=== PATIENT | female | born 1995 | race Two or more races ===

== ENCOUNTER 2024-08-11 18:52 | Emergency (ER) | payer OTHER, MEDICAID ==
[~2024-08-11] VITALS: Ht 154.9 cm; Wt 80.0 kg
[2024-08-11 18:57] VITALS: BP 132/86; PULSE 90; RESP 18; O2SAT 98
[2024-08-11] MEDS ORDERED: diphenhdrAMINE HCL 50 MG/1 ML VL IM ONE (19:15)
[2024-08-11] MEDS ORDERED: DexAMETHasone SOD PHOS 10MG/1ML VIAL INJ IM ONE (19:15)
[2024-08-11] MEDS ORDERED: FAMOTIDINE 20 MG TAB PO ONE (19:15)
[2024-08-11] MEDS ORDERED: METH4PAK PO (19:53)
[2024-08-11] MEDS ORDERED: FAMO20TA10 PO (19:53)
[2024-08-11] MEDS ORDERED: MONT10TA23 PO (19:53)
--- NOTE | 2024-08-11 19:53 | ED.PDOC ---
HPI Allergic reaction HPI Comments PT HAS C/O POSSIBLE ALLERGIC REACTION TO UNK HAS HIVES AND FEELS TIGHTNESS IN THROAT PT STATES SHES TAKEN HER INHALER MULTIPLE TIMES LITTLE RELIEF. DENIES CHEST PAIN, DIFFICULTY BREATHING, THROAT SWELLING SHORTNESS OF BREATH, VOMITING. Chief Complaint: Allergic Reaction Time Seen by MD: 19:05 Primary Care Provider: GARY Barragan Notes: Nurses Notes, Medications, Allergies Allergies: Coded Allergies: NO KNOWN ALLERGIES (Unverified , 02/27/13) Home Meds Active Scripts Famotidine (PEPCID TABLET) 20 Mg Tb, 1 TAB PO BID for 6 Days, #12 TAB 5 Refills Prov:DEANN ESTRADAK DISABILITY COUNSELOR 08/11/24 Methylprednisolone (Medrol Dosepak) 4 Mg Helder, 4 MG PO UD for 6 Days, #21 TAB UAD Prov:RUFINO ESTRADA [facility] 08/11/24 Discontinued Scripts Montelukast Sodium (Singulair) 10 Mg Tab, 10 MG PO HS for 10 Days, #10 TAB Prov:SEANRUFINO Tran [facility] 08/11/24 Information Source: Patient Mode of Arrival: Ambulatory Past Medical History PAST MEDICAL HISTORY: Denies Surgical History: Denies all surgeries EMPLOYMENT SERVICES DIRECTOR History: No Pertinent EMPLOYMENT SERVICES DIRECTOR History Family History Family History: No family hx of DM Social History Smoker: Non-Smoker Alcohol: Denies ETOH Use Drugs: Denies Drug Use Lives In: Home Constitutional: denies: chills, diaphoresis, fatigue, fever, malaise, sweats, weakness, others EENTM: denies: blurred vision, double vision, ear bleeding, ear discharge, ear drainage, ear pain, ear ringing, eye pain, eye redness, hearing loss, mouth pain, mouth swelling, nasal discharge, nose bleeding, nose congestion, nose pain, photophobia, tearing, throat pain, throat swelling, voice changes, others Respiratory: denies: cough, hemoptysis, orthopnea, SOB at rest, shortness of breath, SOB with excertion, stridor, wheezing, others Cardiovascular: denies: chest pain, dizzy spells, diaphoresis, Dyspnea on exertion, edema, irregular heart beat, left arm pain, lightheadedness, palpitations, PND, syncope, others Gastrointestinal: denies: abdomen distended, abdominal pain, blood streaked bowels, constipated, diarrhea, dysphagia, difficulty swallowing, hematemesis, melena, nausea, poor appetite, poor fluid intake, rectal bleeding, rectal pain, vomiting, others Genitourinary: denies: abnormal vagina bleeding, burning, dyspareunia, dysuria, flank pain, frequency, hematuria, incontinence, pain, , vagina discharge, urgency, others Neurological: denies: dizziness, fainting, headache, left sided numbness, left sided weakness, numbness, paresthesia, pre-existing deficit, right sided numbness, right sided weakness, seizure, speech problems, tingling, tremors, weakness, others Musculoskeletal: denies: back pain, gout, joint pain, joint swelling, muscle pain, muscle stiffness, neck pain, others Integumetry: reports: rash (HIVES AND ITCHINESS TO TRUNK) Allergic/Immunocompromised: denies: Difficulty Healing, Frequent Infections, Hives, Itching, others Hematologic/Lymphatic: denies: anemia, blood clots, easy bleeding, easy bruising, swollen glands, others Endocrine: denies: excessive hunger, excessive sweating, excessive thirst, excessive urination, flushing, intolerance to cold, intolerance to heat, unexplained weight gain, unexplained weight loss, others Psychiatric: denies: anxiety, bipolar disorder, depression, hopeless, panic disorder, schizophrenia, sleepless, suicidal, others Physical Exam General Appearance: No Apparent Distress, Normal HEENT: Normal ENT Inspection, Pharynx Normal, TMs Normal Neck: Full Range of Motion, Non-Tender Respiratory: Lungs Clear, No Accessory Muscle Use, No Respiratory Distress, Normal Breath Sounds Cardiovascular: No Edema, No Murmur, Normal Peripheral Pulses, Regular Rate/Rhythm Breast Exam: Deferred Gastrointestinal: Non Tender, Soft Genitalia: Deferred Pelvic: Deferred Rectal: Deferred Extremities: Normal capillary refill, Normal inspection, Normal range of motion, Non-tender, No pedal edema Musculoskeletal : Apperance: Normal Neurologic: Alert, sludge mill operator II-XII nml as Tested, No Motor Deficits, Normal Affect, Normal Mood, No Sensory Deficits Cerebellar Function: Normal Reflexes: Normal Skin: Dry, Normal Color, Rash (URTICARIAL RASH TO TRUNK WITHOUT OPEN LESIONS, EXCORIATIONS, OR DRAINAGE.), Warm Lymphatic: No Adenopathy Was a procedure done? Was a procedure done?: No Differential diagnosis (all) Differential Diagnosis: Anaphylaxis, Angioedema, Bronchospasm, Urticaria X-Ray, Labs, Meds, VS Vital Signs Date Time Temp Pulse Resp B/P (MAP) Pulse Ox O2 Delivery O2 Flow Rate FiO2 08/11/24 18:57 98.6 90 18 132/86 (101) 98 X-Ray, Labs, Meds, VS Comment PATIENT WAS GIVEN DECADRON 10 MG IM, 25 MG BENADRYL IM, AND PEPCID 40 MG P.O. REPORTS IMPROVEMENT IN SYMPTOMS REQUESTING DISCHARGE AT THIS TIME PEPCID AND MEDROL DOSEPAK. REST INCREASE P.O. FLUIDS WITH ELECTROLYTES. ADVISED TO FOLLOW UP WITH HER PCP IF SYMPTOMS PERSIST CONSIDER REFERRAL TO AN UPHOLSTERY TECHNICIAN FOR TE STING. ER RETURN PRECAUTIONS GIVEN PATIENT INDICATED UNDERSTANDING AND AGREES WITH DISCHARGE PLAN OF CARE. Time of 1ST Reevaluation: 19:48 Reevaluation 1ST: Improved Patient Education/Counseling: Diagnosis, Treatment, Prognosis, Need For Follow Up Family Education/Counseling: No Family Present Departure 1 Departure Time of Disposition: 19:51 Impression: Primary Impression: Allergic reaction Qualified Codes: T78.40XA - Allergy, unspecified, initial encounter Disposition: HOME / SELF CARE / HOMELESS Condition: Stable e-Prescriptions Famotidine (PEPCID TABLET) 20 Mg Tb 1 TAB PO BID for 6 Days, #12 TAB 5 Refills Prov: RUFINO ESTRADA 08/11/24 Methylprednisolone (Medrol Dosepak) 4 Mg Helder 4 MG PO UD for 6 Days, #21 TAB UAD Prov: RUFINO ESTRADA 08/11/24 Discharged With: Spouse Critical Care Note Critical Care Time?: No Stability Stability form required: No RUFINO ESTRADA Aug 11, 2024 19:53
== END 2024-08-11 20:58 | disposition home or self-care (01) ==
LOC: ER 18:52
DX: T78.40XA Allergy, unspecified, initial encounter (principal); Z79.899 Other long term (current) drug therapy; X58.XXXA Exposure to other specified factors, initial encounter